=== PATIENT | male | born 1995 | race Caucasian/White ===

== ENCOUNTER 2016-07-31 23:40 | Emergency (ER) | payer SELFPAY ==
[2016-07-31 23:49] VITALS: RESP 18; TEMP 97.9
--- NOTE | 2016-08-01 | EDPHY ---
H & P Stated Complaint: Pt had a panic attack and punched a dumpster HPI/ROS: HPI CHIEF COMPLAINT: Right hand pain after punching a dumpster HISTORY OF PRESENT ILLNESS: This patient very pleasant 21-year-old male significant past medical history for anxiety, bipolar disorder, presents emergency room after he punched a dumpster with his right hand. States he became very anxious and very angry punched a dumpster. He now has pain to the 4th and 5th metacarpal. He also admits to lateral wrist pain. No other areas of trauma. Patient did have alcohol this evening. Past Medical History: Bipolar, anxiety Past Surgical History: No recent surgical history Social History: Drank multiple alcoholic beverages prior to arrival denies other drug use Family History: Noncontributory ROS REVIEW OF SYSTEMS: A comprehensive 10 point review of systems is otherwise negative aside from elements mentioned in the history of present illness. Exam Constitutional smells of alcohol, triage nursing summary reviewed, vital signs reviewed, awake/alert. Eyes normal conjunctivae and sclera, EOMI, PERRLA. HENT normal inspection, atraumatic, moist mucus membranes, no epistaxis, neck supple/ no meningismus, no raccoon eyes. Respiratory clear to auscultation bilaterally, normal breath sounds, no respiratory distress, no wheezing. Cardiovascular rate normal, regular rhythm, no murmur, no edema, distal pulses normal. Gastrointestinal soft, non-tender, no rebound, no guarding, normal bowel sounds, no distension, no pulsatile mass. Genitourinary no CVA tenderness. 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 Skin pink, warm, & dry, no rash, skin atraumatic. Neurologic awake, alert and oriented x 3, AAOx3, moves all 4 extremities equally, motor intact, sensory intact, CN II-XII intact, normal cerebellar, normal vision, normal speech. Psychiatric normal mood/affect. Heme/Lymph/Immune no lymphadenopathy. Differential Diagnosis: Includes but is not limited to in a particular order, metacarpal fracture, hand contusion, soft tissue injury, wrist fracture, wrist sprain Medical Decision Making: Plan for this patient x-ray right hand, right wrist, ibuprofen 800 mg to be given, ice pack, 1 mg p.o. Ativan. Re-evaluation: ED x-ray right wrist: Negative for acute fracture. Image interpreted by myself ED x-ray right hand: negative for acute fracture. Image interpreted myself. [id number]: Patient be splinted ulnar gutter splint. I do not visualize a fracture. Patient be placed on a got a splint on need to follow up with Hand surgery for splint takedown reach x-ray. Patient be given ibuprofen here as well as 1 mg p. o. Ativan. I will also give him a [place] tab. Prescription for [place] should stay in a splint sling, ice his hand and wrist. Follow up with Hand surgery he understands. At this time is neurovascularly intact. Good cap refill, good pulses. Source: Patient - Personal History Current Tetanus/Diphtheria Vaccine: Yes Current Tetanus Diphtheria and Acellular Pertussis (TDAP): Yes - Medical/Surgical History Hx Asthma: Yes Hx Chronic Respiratory Disease: No Hx Diabetes: No Hx Cardiac Disease: No Hx Renal Disease: No Hx Cirrhosis: No Hx Alcoholism: No Hx HIV/AIDS: No Hx Splenectomy or Spleen Trauma: No Other PMH: asthma - Social History Smoking Status: Current every day smoker Constitutional: Initial Vital Signs Temperature (C) 36.6 C 07/31/16 23:47 Heart Rate 107 H 07/31/16 23:47 Respiratory Rate 18 07/31/16 23:47 Blood Pressure 139/93 H 07/31/16 23:47 O2 Sat (%) 97 07/31/16 23:47 O2 Delivery Mode Room Air Allergies/Adverse Reactions: No Known Allergies Allergy (Unverified 07/31/16 23:49) Home Medications: Medication Instructions Recorded Hydrocodone/APAP 5/325 [[place] 1 - 2 tab PO Q4H PRN #10 tab 08/01/16 5/325] Medical Decision Making - Data Points Medications Given: Discontinued Medications Ibuprofen (Motrin) 800 mg PO EDNOW ONE Stop: 08/01/16 00:24 Last Admin: 08/01/16 00:36 Dose: 800 mg Lorazepam (Ativan) 1 mg PO ONCE ONE Stop: 08/01/16 00:24 Last Admin: 08/01/16 00:25 Dose: 1 mg Departure - Departure Disposition: Home, Routine, Self-Care Clinical Impression: Anxiety Sprain of hand, right Qualifiers: Encounter type: initial encounter Qualified Code(s): S63.91XA - Sprain of unspecified part of right wrist and hand, initial encounter Condition: Good Instructions: Contusion in Adults (ED), Hand Sprain (ED) Additional Instructions: 1. You need to follow up with Hand surgery. 2.Please call to make an appointment 3.They will take you out of her splint in re-x-ray your hand make sure there is not a small fracture we did not see tonight. 4. Please ice your hand. Referrals: NONE *PRIMARY CARE P,. [Primary Care Provider] - As per Instructions Rinku Santos MD [Medical Doctor] - As per Instructions Prescriptions: Hydrocodone/APAP 5/325 [[place] 5/325] 1 - 2 tab PO Q4H PRN #10 tab PRN Reason: Pain, Moderate
[2016-08-01] MEDS ORDERED: IBUPROFEN 200 MG TAB PO ONE (00:23)
[2016-08-01] MEDS ORDERED: LORazepam 1 MG TAB ONE (00:23)
[2016-08-01] MEDS ORDERED: LORazepam 1 MG TAB PO ONE (00:23)
[2016-08-01] MEDS ORDERED: HYDROCODONE/APAP 5/325 TAB PO ONE (01:07)
[2016-08-01] MEDS ORDERED: HYDROCODONE/APAP 5/325 TAB ONE (01:13)
[2016-08-01] MEDS ORDERED: HYDROCOD/APAP 5/325 PREPACK#6 BTL TAKEHOME ONE ×2 (01:25→01:28)
[2016-08-01 01:30] VITALS: BP 119/80; PULSE 76; O2SAT 94
== END 2016-08-01 01:29 | disposition home or self-care (01) ==
DX: S63.91XA Sprain of unspecified part of right wrist and hand, initial encounter (principal); F41.9 Anxiety disorder, unspecified; J45.909 Unspecified asthma, uncomplicated; F17.200 Nicotine dependence, unspecified, uncomplicated; W22.8XXA Striking against or struck by other objects, initial encounter

== ENCOUNTER 2017-08-20 17:49 | Emergency (ER) | payer MEDICAID ==
[2017-08-20] MEDS ORDERED: KETOROLAC 30 MG/1 ML SDV IVP ONE (18:19)
[2017-08-20] MEDS ORDERED: NS 1,000 ML IV ONE (18:19)
[2017-08-20] MEDS ORDERED: FAMOTIDINE 20 MG/NACL 50 ML IV ONE (18:19)
[2017-08-20] MEDS ORDERED: LIDOCAINE 2% VISCOUS 15 ML UDCUP PO ONE (18:19)
[2017-08-20] MEDS ORDERED: HYOSCYAMINE SULFATE 0.125 MG TAB PO ONE (18:19)
[2017-08-20] MEDS ORDERED: MAG HYDROX/AL HYDROX/SIMETH 30 ML UDCUP PO ONE (18:19)
[2017-08-20] MEDS ORDERED: ONDANSETRON 4 MG/2 ML VIAL IVP ONE (18:19)
--- NOTE | 2017-08-20 18:23 | EDPHY ---
H & P Time Seen by Provider: 08/20/17 18:11 HPI/ROS: CHIEF COMPLAINT: Abdominal pain HISTORY OF PRESENT ILLNESS: Patient is a 22-year-old male with a history of pancreatitis the presents emergency department with epigastric and left upper quadrant abdominal discomfort. His pain started a few days ago. Last evening went out and drank alcohol. He has recently cut back on his alcohol intake. Today woke up with increasing abdominal pain. It is severe. It radiates to his back. He has had numerous episodes of nausea vomiting. He denies diarrhea. No hematemesis. No fevers or chills. No dysuria frequency. No hematuria. This feels similar to his previous pancreatitis. REVIEW OF SYSTEMS: My complete review of systems is negative except as mentioned in the HPI. Past Medical/Surgical History: Includes pancreatitis, anxiety, asthma Past surgical history: Negative Social history: The patient drinks alcohol. He denies drug use. Smoking Status: Current every day smoker Physical Exam: 37.3, 131/89, 91, 18, 96% on room air GENERAL: Mild acute distress, alert. HEENT: Eyes normal to inspection, normal pharynx, no signs of dehydration. NECK: No thyromegaly, no lymphadenopathy, supple. RESPIRATORY: Clear to auscultation bilaterally, no rales, rhonchi or wheezing. CVS: Regular rate and rhythm, no rubs, murmurs, or gallops. ABDOMEN: Soft, epigastric and left upper quadrant tenderness to palpation with no rebound or guarding, nondistended, no organomegaly. BACK: Normal to inspection, no CVA tenderness. SKIN: Normal color, no rash, warm, dry. No pallor. EXTREMITIES: No pedal edema, no calf tenderness, no Homans sign or cords, no joint swelling. NEURO/PSYCH: Alert and oriented, normal mood and affect, normal motor sensory exam. Constitutional: Initial Vital Signs Temperature (C) 37.3 C 08/20/17 18:03 Heart Rate 91 08/20/17 18:03 Respiratory Rate 18 08/20/17 18:03 Blood Pressure 131/89 H 08/20/17 18:03 O2 Sat (%) 96 08/20/17 18:03 O2 Delivery Mode Room Air Allergies/Adverse Reactions: No Known Allergies Allergy (Unverified 07/31/16 23:49) Home Medications: Medication Instructions Recorded Ciprofloxacin [Cipro] 500 mg PO BID #20 tab 08/20/17 metroNIDAZOLE [Flagyl 500 mg (*)] 500 mg PO BID #20 tab 08/20/17 Medical Decision Making - Diagnostics Imaging Results: Imaging Impressions Abdomen CT 08/20/17 18:59 Impression: 1. Fluid and gas-filled loops of small bowel that are mildly prominent within the abdomen without focus of obstruction suggestive of ileus or enteritis. 2. Mildly thickened of decompressed transverse colon to sigmoid colon possibly from mild colitis. Findings discussed with Erendira Whitfield M.D. at 20:30 hour, 08/20/2017. ED Course/Re-evaluation: In the emergency department I discussed possible etiologies with the patient. I answered all his questions. IV was placed. Laboratory studies, EKG were ordered. Patient was given normal saline 1 L IV for hydration. He is given Zofran 4 mg IV for nausea. He was given Pepcid, Toradol and a GI cocktail for his abdominal pain. Patient's CBC and chemistry were normal. LFTs and lipase normal. 1900: I rechecked the patient. He still had significant epigastric pain. He had mild tenderness on palpation. Because of this he was given Dilaudid 0.[address] scan was ordered. CT abdomen pelvis: Please refer the dictated report by Dr. Ro. The patient has enteritis and colitis. Ileus. Normal appendix. No obstruction. I discussed the results with the patient. On recheck he was lying in bed in no acute distress. Abdomen was soft with minimal epigastric tenderness palpation. No rebound or guarding. I discussed disposition options with the patient. He feels comfortable going home. I gave him warnings. He will be given Cipro Flagyl to treat colitis. He is given the 1st dose in the emergency department. He is given a prescription of Percocet. Patient was concerned about sleeping and he was given 3 tablets of trazodone. Differential Diagnosis: My differential includes but is not limited to pancreatitis, cholecystitis, cholangitis, peptic ulcer disease, GERD, esophageal disruption, Krys-Hurtado tear, kidney stone - Data Points Laboratory Results: Laboratory Results 08/20/17 18:27 08/20/17 18:27 08/20/17 08/20/17 08/20/17 20:05 18:27 18:27 WBC RBC Hgb Hct MCV MCH MCHC RDW Plt Count MPV Neut % (Auto) Lymph % (Auto) [place] % (Auto) Eos % (Auto) Baso % (Auto) Nucleat RBC Rel Count Absolute Neuts (auto) Absolute Lymphs (auto) Absolute Monos (auto) Absolute Eos (auto) Absolute Basos (auto) Absolute Nucleated RBC Immature Gran % Immature Gran # PT 13.3 SEC SEC (12.0-15.0) INR 0.99 (0.83-1.16) APTT 27.2 SEC SEC (23.0-38.0) Sodium 139 mEq/L mEq/L (135-145) Potassium 4.4 mEq/L mEq/L (3.5-5.2) Chloride 103 mEq/L mEq/L (97-110) Carbon Dioxide 23 mEq/l mEq/l (22-31) Anion Gap 13 mEq/L mEq/L (8-16) BUN 16 mg/dL mg/dL (7-23) Creatinine 1.0 mg/dL mg/dL (0.7-1.3) Estimated GFR > 60 Glucose 83 mg/dL mg/dL (70-100) Calcium 9.4 mg/dL mg/dL (8.5-10.4) Total Bilirubin 0.9 mg/dL mg/dL (0.1-1.4) Conjugated Bilirubin 0.4 mg/dL mg/dL (0.0-0.5) Unconjugated Bilirubin 0.5 mg/dL mg/dL (0.0-1.1) AST 20 IU/L IU/L (17-59) ALT 33 IU/L IU/L (21-72) Alkaline Phosphatase 67 IU/L IU/L (38-126) Total Protein 6.9 g/dL g/dL (6.3-8.2) Albumin 4.1 g/dL g/dL (3.5-5.0) Lipase 81 IU/L IU/L (23-300) Urine Color Pending Urine Appearance Pending Urine pH Pending Ur Specific [place] Pending Urine Protein Pending Urine Ketones Pending Urine Blood Pending Urine Nitrate Pending Urine Bilirubin Pending Urine Urobilinogen Pending Ur Leukocyte Esterase Pending Urine RBC Pending Urine WBC Pending Ur Epithelial Cells Pending Urine Glucose Pending 08/20/17 18:27 WBC 11.72 10^3/uL H 10^3/uL (3.80-9.50) RBC 5.18 10^6/uL 10^6/uL (4.40-6.38) Hgb 16.6 g/dL g/dL (13.7-17.5) Hct 48.5 % % (40.0-51.0) MCV 93.6 fL fL (81.5-99.8) MCH 32.0 pg pg (27.9-34.1) MCHC 34.2 g/dL g/dL (32.4-36.7) RDW 12.4 % % (11.5-15.2) Plt Count 288 10^3/uL 10^3/uL (150-400) MPV 10.0 fL fL (8.7-11.7) Neut % (Auto) 66.8 % % (39.3-74.2) Lymph % (Auto) 18.3 % % (15.0-45.0) [place] % (Auto) 9.4 % % (4.5-13.0) Eos % (Auto) 4.6 % % (0.6-7.6) Baso % (Auto) 0.6 % % (0.3-1.7) Nucleat RBC Rel Count 0.0 % % (0.0-0.2) Absolute Neuts (auto) 7.83 10^3/uL H 10^3/uL (1.70-6.50) Absolute Lymphs (auto) 2.15 10^3/uL 10^3/uL (1.00-3.00) Absolute Monos (auto) 1.10 10^3/uL H 10^3/uL (0.30-0.80) Absolute Eos (auto) 0.54 10^3/uL H 10^3/uL (0.03-0.40) Absolute Basos (auto) 0.07 10^3/uL 10^3/uL (0.02-0.10) Absolute Nucleated RBC 0.00 10^3/uL 10^3/uL (0-0.01) Immature Gran % 0.3 % % (0.0-1.1) Immature Gran # 0.03 10^3/uL 10^3/uL (0.00-0.10) PT INR APTT Sodium Potassium Chloride Carbon Dioxide Anion Gap BUN Creatinine Estimated GFR Glucose Calcium Total Bilirubin Conjugated Bilirubin Unconjugated Bilirubin AST ALT Alkaline Phosphatase Total Protein Albumin Lipase Urine Color Urine Appearance Urine pH Ur Specific [place] Urine Protein Urine Ketones Urine Blood Urine Nitrate Urine Bilirubin Urine Urobilinogen Ur Leukocyte Esterase Urine RBC Urine WBC Ur Epithelial Cells Urine Glucose Medications Given: Discontinued Medications Al Hydroxide/Mg Hydroxide (Maalox Susp) 30 ml PO ONCE ONE Stop: 08/20/17 18:20 Last Admin: 08/20/17 18:46 Dose: 30 ml Hydromorphone HCl (Dilaudid) 0.5 mg IVP EDNOW ONE Stop: 08/20/17 19:00 Last Admin: 08/20/17 19:15 Dose: 0.5 mg Hyoscyamine Sulfate (Levsin, Hyomax-Sl) 0.25 mg PO ONCE ONE Stop: 08/20/17 18:20 Last Admin: 08/20/17 18:46 Dose: 0.25 mg Sodium Chloride (Ns) 1,000 mls @ 0 mls/hr IV EDNOW ONE; Wide Open PRN Reason: Protocol Stop: 08/20/17 18:20 Last Admin: 08/20/17 18:45 Dose: 1,000 mls Famotidine/Sodium Chloride (Pepcid 20 Mg (Premix)) 50 mls @ 200 mls/hr IV EDNOW ONE Stop: 08/20/17 18:33 Last Admin: 08/20/17 18:45 Dose: 50 mls Ketorolac Tromethamine (Toradol) 30 mg IVP EDNOW ONE Stop: 08/20/17 18:20 Last Admin: 08/20/17 18:46 Dose: 30 mg Lidocaine (Lidocaine 2% Viscous) 15 ml PO ONCE ONE Stop: 08/20/17 18:20 Last Admin: 08/20/17 18:46 Dose: 15 ml Ondansetron HCl (Zofran) 4 mg IVP EDNOW ONE Stop: 08/20/17 18:20 Last Admin: 08/20/17 18:46 Dose: 4 mg Departure - Departure Disposition: Home, Routine, Self-Care Clinical Impression: Colitis, Enteritis Abdominal pain Qualifiers: Abdominal location: epigastric Qualified Code(s): R10.13 - Epigastric pain Condition: Good Instructions: Abdominal Pain (ED), Colitis (ED), Enteritis (ED) Additional Instructions: Return with increasing pain, diarrhea, fever or any other concerns. Take your entire course of antibiotics. Referrals: Rosio Spann MD [Medical Doctor] - 5-7 days, call for appt. Prescriptions: Ciprofloxacin [Cipro] 500 mg PO BID #20 tab metroNIDAZOLE [Flagyl 500 mg (*)] 500 mg PO BID #20 tab
[2017-08-20 18:31] LABS: PLATELET COUNT 288 10^3/uL (150-400)
[2017-08-20 18:42] LABS: INR 0.99 (0.83-1.16); PROTIME(PATIENT) 13.3 SEC (12.0-15.0)
[2017-08-20] MEDS ORDERED: HYDROmorphONE/DILAUDID 2 MG/ML INJ IVP ONE (18:59)
[2017-08-20] MEDS ORDERED: IOPAMIDOL (ISOVUE-300) 100 ML BTL ONE (19:17)
[2017-08-20] MEDS ORDERED: CIPROFLOXACIN 500 MG TAB PO ONE (20:37)
[2017-08-20] MEDS ORDERED: OXYCODONE/APAP 5/325MG PREPACK#4 BTL TAKEHOME ONE (20:37)
[2017-08-20] MEDS ORDERED: metroNIDAZOLE 500 MG TAB PO ONE (20:37)
[2017-08-20 20:51] VITALS: BP 122/74
== END 2017-08-20 20:53 | disposition home or self-care (01) ==
DX: K52.9 Noninfective gastroenteritis and colitis, unspecified (principal); E86.9 Volume depletion, unspecified; J45.909 Unspecified asthma, uncomplicated; F17.200 Nicotine dependence, unspecified, uncomplicated
CPT/HCPCS: 96374; J1170; J1885; J2405; Q9967